=== PATIENT | male | born 1985 | race Caucasian/White ===

== ENCOUNTER 2017-04-12 12:11 | Emergency (ER) | payer OTHER ==
[~2017-04-12] VITALS: Ht 175.3 cm; Wt 93.4 kg
[2017-04-12] MEDS ORDERED: ZESTORETIC 20-1 EAC1 (12:16)
== END 2017-04-12 12:42 | disposition home or self-care (01) ==
LOC: SED 12:11
DX: S50.812A Abrasion of left forearm, initial encounter (principal); I10 Essential (primary) hypertension; W50.4XXA Accidental scratch by another person, initial encounter; Y92.009 Unspecified place in unspecified non-institutional (private) residence as the place of occurrence of the external cause
CPT/HCPCS: 99282